=== PATIENT | male | born 1980 | race Hispanic/Latino ===

== ENCOUNTER 2022-05-09 18:24 | Emergency (ER) | payer OTHER ==
[~2022-05-09] VITALS: Ht 170.2 cm; Wt 68.0 kg
[~2022-05-09 18:24] MED LIST: LASIX20 MG PO
== END 2022-05-09 21:43 | disposition home or self-care (01) ==
LOC: ED 18:24
DX: S01.81XA Laceration without foreign body of other part of head, initial encounter (principal); K08.89 Other specified disorders of teeth and supporting structures; Y04.8XXA Assault by other bodily force, initial encounter; I10 Essential (primary) hypertension
CPT/HCPCS: 12001; 70450; 70486; 72125; 99284-25; A9270